=== PATIENT | male | born 1955 | race Hispanic/Latino ===

== ENCOUNTER 2021-04-17 07:26 | Day surgery (SDC) | payer BC ==
[2021-04-17] MEDS: SODIUM CHLORIDE 0.9% 500 ML 500 ML IV SCH ×2 (09:00→12:08)
[2021-04-17 09:27] LABS: BUN/Creatinine Ratio 21; Blood Urea Nitrogen 17 mg/dL (9-20); Calcium 9.7 mg/dL (8.4-10.2); Hemolysis Index 3
[2021-04-17 09:46] LABS: Basophils # (Auto) 0.2 K/mm3 (0.0-0.1); Basophils % (Auto) 2.8 % (0.0-1.8); Eosinophils # (Auto) 0.3 K/mm3 (0.0-0.4); Eosinophils % (Auto) 3.6 % (0.0-4.3); Hematocrit 39.8 % (35.5-45.6); Hemoglobin 13.1 gm/dl (11.8-15.2); Mean Corpuscular HGB Conc 33 % (32-34); Mean Corpuscular Volume 85 fl (84-94); Monocytes # (Auto) 0.6 K/mm3 (0.0-0.8); Monocytes % (Auto) 7.9 % (0.0-7.3); Platelet Count 232 K/mm3 (140-440); Red Blood Count 4.68 M/mm3 (3.65-5.03)
[2021-04-17] MEDS ORDERED: HEPARIN 10,000 UNITS/10 ML VIAL ONE (11:06)
[2021-04-17] MEDS ORDERED: HEPARIN/NS 5000 UNIT/500ML 1,000 ML IR ONE (11:06)
[2021-04-17] MEDS: fentaNYL 100 MCG/2 ML INJ ONE ×2 (12:07→12:14)
[2021-04-17] MEDS: MIDAZOLAM 2 MG/2 ML INJ ONE ×2 (12:07→12:14)
[2021-04-17] MEDS: LIDOCAINE (2%) 20 MG/1 ML VIAL 20 ML MDV INFILTRATI ONE ×2 (12:07→12:15)
[2021-04-17] MEDS ORDERED: traMADol 50 MG TAB PO PRN (12:50)
--- NOTE | 2021-04-17 12:53 | Discharge Summary ---
Short Stay Discharge Plan Activity: advance as tolerated Weight Bearing Status: Partial Weight Bearing Diet: low fat, low cholesterol, low salt Wound: keep clean and dry Special Instructions: smoking cessation, no heavy lifting (3 days), hold Metf ormin (48 hrs) Follow up with: AURA HANNA NP [Primary Care Provider] - 7 Days NERI GROSS MD [Staff Physician] - 7 Days
[2021-04-17] MEDS ORDERED: SODIUM CHLORIDE 0.9% 1000 ML 1,000 ML IV SCH (13:10)
--- NOTE | 2021-04-17 13:25 | Cardiac Catherization Report ---
DATE OF SERVICE: 04/17/2021 REASON FOR PROCEDURE: Shortness of breath, aortic stenosis, abnormal thallium stress test. PROCEDURES: 1. Right heart catheterization. 2. Left heart catheterization. 3. Left and right coronary angiography. 4. Left ventricular angiography. 5. Sedation time start 12:14, end 12:28. DESCRIPTION OF PROCEDURE: The patient was prepped and draped in a sterile fashion after informed consent. The right femoral artery and vein were both entered using the Seldinger technique. A 6 Mexican sheath was placed in the artery and an 8-Mexican sheath in the vein. A Linn-Andrea catheter was then advanced to the pulmonary artery position. A #4 right Deborah was advanced into the left ventricle. Simultaneous left and right filling pressures were recorded. The Linn-Andrea catheter was then withdrawn, and right heart pressures recorded on pullback. Left ventricular angiography was performed using a hand injection via the right Deborah catheter. The right Deborah was then withdrawn across the aortic valve and transaortic gradient was recorded. Right coronary angiography was then performed, and the catheter was exchanged for a #4 left Deborah, which was used for left coronary angiography. The catheters were then removed, sheath removed, hemostasis at the arterial site using an Angio-Seal device and at the venous site using manual compression. The patient was returned to the postprocedure unit in stable condition. Procedure was well tolerated and there were no complications. FINDINGS: HEMODYNAMICS: Mean right atrial pressure was 25. Right ventricular pressure was 55/25. Pulmonary artery pressure was 55/40. The mean pulmonary artery wedge pressure was 25-30. Cardiac output was suboptimal due to equipment calibration, recorded at 7.8. Left ventricular end diastolic pressure was 25-30. Left ventricular systolic pressure was 171. The ascending aortic pressure was 162/81. Aortic valve gradient: On pullback across the aortic valve, the transaortic [id number] gradient was 9 mmHg. The mean gradient was 9.2 mmHg. CORONARY ANGIOGRAPHY: The left main coronary artery was short, there was essentially dual ostia of the LAD and circumflex arteries. The left anterior descending artery contained mild luminal irregularities with no significant disease in this vessel or its diagonal branches. The circumflex artery similarly contained mild diffuse atherosclerosis, with no significant obstructive lesions in the vessel or its obtuse marginal branches. The right coronary artery was dominant and this vessel similarly contained mild luminal irregularities. Left ventricular systolic function was at lower limits of normal with ejection fraction estimated at 45-50%. CONCLUSION: 1. Elevated left ventricular end diastolic pressure, moderate pulmonary hypertension with pulmonary artery systolic pressure of 55. 2. Mild aortic stenosis, with mean transaortic gradient of 9.2 mmHg. 3. No significant coronary artery disease, mild luminal irregularities as noted above. 4. Left ventricular systolic function at the lower limits of normal, ejection fraction 45-50%. RECOMMENDATIONS: Risk factor modification, and serial clinical and noninvasive monitoring of aortic valve disease. TID: [id number] RECEIPT: [id number] AYO/LAKESHIA
[2021-04-17 14:52] VITALS: BP 148/65
--- NOTE | 2021-04-17 17:49 | Electrocardiograph Report ---
[facility] Test Date: 2021-04-17 Test Time: 09:09:15 Pat Name: [facility] Department: Room: Gender: M Software Release Manager: RAMONITA : 1955 Requested By: JUSTINE GROSS Order Number: [id number] Reading MD: Justine Gross Measurements Intervals [place] Rate: 69 P: 22 DE: 74 QRS: 57 QRSD: 98 T: 43 QT: 417 QTc: 446 Interpretive Statements Sinus rhythm No previous ECG available for comparison Electronically Signed On 04-17-2021 17:49:14 EDT by Justine Gross
== END 2021-04-17 07:27 | disposition home or self-care (01) ==
LOC: CATHLABREC 07:26
PROVIDERS: ATTEND Internal Medicine Cardiovascular Disease
DX: R06.02 Shortness of breath (principal); I35.0 Nonrheumatic aortic (valve) stenosis; I27.20 Pulmonary hypertension, unspecified; G47.30 Sleep apnea, unspecified; K21.9 Gastro-esophageal reflux disease without esophagitis; M19.90 Unspecified osteoarthritis, unspecified site; F41.9 Anxiety disorder, unspecified; Z87.891 Personal history of nicotine dependence; Z79.899 Other long term (current) drug therapy; Z90.49 Acquired absence of other specified parts of digestive tract; Z98.890 Other specified postprocedural states
CPT/HCPCS: 36415; 80048; 85025; 85610; 85730; 93005; 93460; 99156; C1760; C1894; J1644; J2250; J3010; J7040; Q9967